=== PATIENT | female | born 1950 | race Caucasian/White ===

== ENCOUNTER → 2017-12-14 | Outpatient (CLI) | payer MEDICARE ==
--- NOTE | 2017-12-14 13:35 | Diagnostic Imaging Report ---
PROCEDURE: US Thyroid. TECHNIQUE: Multiple real-time grayscale images were obtained of the thyroid in various projections. INDICATION: Multinodular goiter. COMPARISON: There are no prior studies available for comparison. FINDINGS: The thyroid gland is not enlarged. The right lobe measures 4.2 x 1.8 x 1.7 cm while the left lobe is estimated to be 2.6 x 0.8 x 0.6 cm (normal gland size 4-5 x 2 x 2 cm or less). The reason for the diminished size of the left lobe of the thyroid is not certain. According to the patient, she has had some type of thyroid treatment in the past. Correlation with the patient's history would be recommended. There is a 2.2 x 1.5 cm solid nodule in the mid inferior pole of the right lobe of the thyroid. There is also a 1.1 x 0.6 x 1.1 cm nodule arising from the isthmus. This appears to be solid as well. There is no discrete solid or cystic mass involving the left lobe of the thyroid. IMPRESSION: 1. There is a 2.2 x 1.5 cm solid nodule in the inferior pole of the right lobe of the thyroid. If previous studies are available, they would be helpful for comparison. If there are no prior studies, then a nuclear medicine thyroid scan would be recommended to better characterize this finding. 2. There is also a 1.1 x 1.1 cm isthmic nodule. This could also be further evaluated by the nuclear medicine study. 3. The left lobe of the thyroid is much smaller than right. The reason for this is not certain. Correlation with the patient's history would be recommended. Dictated by: Dictated on workstation # [id number]
== END ==
LOC: RAD 12:47
PROVIDERS: ATTEND Internal Medicine Endocrinology, Diabetes & Metabolism
DX: E05.20 Thyrotoxicosis with toxic multinodular goiter without thyrotoxic crisis or storm (principal)
CPT/HCPCS: 76536

== ENCOUNTER → 2018-06-07 | Outpatient (CLI) | payer MEDICARE | LOC: LAB 11:36 | PROVIDERS: ATTEND Internal Medicine Endocrinology, Diabetes & Metabolism | DX: E05.20 Thyrotoxicosis with toxic multinodular goiter without thyrotoxic crisis or storm (principal) | CPT/HCPCS: 36415; 84443 ==

== ENCOUNTER → 2018-11-29 | Outpatient (CLI) | payer MEDICARE ==
--- NOTE | 2018-11-29 12:58 | Diagnostic Imaging Report ---
PROCEDURE: US Thyroid. TECHNIQUE: Multiple real-time grayscale images were obtained of the thyroid in various projections. INDICATION: Multinodular goiter. FINDINGS: The previous thyroid ultrasound exam of 12/14/2017 noted that the thyroid gland was not enlarged. There was a 2.2 x 1.5 cm solid nodule in the inferior pole of the right lobe and a 1.1 x 1.1 cm isthmic nodule. On this exam, the nodule in the right lobe is now estimated to be 1.9 x 1.6 cm while the isthmic nodule measures 1.0 x 1.2 cm. The overall appearance of the right lobe of the thyroid does not seem to have changed significantly. The right lobe measures 3.3 x 1.6 x 1.4 cm (normal gland size 4-5 x 2 x 2 cm or less). The left lobe of the thyroid gland, as noted previously, is smaller measuring 2.2 x 0.9 x 0.6 cm. IMPRESSION: The nodules in the right lobe and the isthmus of the thyroid seen previously appear stable. No new abnormality has developed. Dictated by: Dictated on workstation # [id number]
== END ==
LOC: RAD 10:25
PROVIDERS: ATTEND Internal Medicine Endocrinology, Diabetes & Metabolism
DX: E05.20 Thyrotoxicosis with toxic multinodular goiter without thyrotoxic crisis or storm (principal); E04.2 Nontoxic multinodular goiter
CPT/HCPCS: 76536

== ENCOUNTER → 2021-09-11 | Outpatient (CLI) | payer MEDICARE ==
--- NOTE | 2021-09-11 11:55 | Diagnostic Imaging Report ---
PROCEDURE: US Thyroid. TECHNIQUE: Multiple real-time grayscale images were obtained of the thyroid in various projections. 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 COMPARISON: 11/29/2018 Right and left lobes of thyroid gland measure 4.6 x 1.9 x 1.5 cm and 2.6 x 0.8 x 0.7 cm, respectively. Solid nodule in the right lobe of the thyroid gland measures 1.8 x 1.2 x 1.2 cm. This corresponds to previous measurements of 2.2 x 1.5 cm. Nodule in the isthmus measures approximately 0.9 cm in size compared with 1.1 cm on the previous study. Lobar volume asymmetry is also stable. No periglandular abnormality was documented. IMPRESSION: Stable overall appearance of thyroid gland with larger right lobe and persistent right lobe and isthmus nodules. Dictated by: Dictated on workstation # [id number]
== END ==
LOC: RAD 11:15
PROVIDERS: ATTEND Registered Nurse
DX: E04.2 Nontoxic multinodular goiter (principal)
CPT/HCPCS: 76536